=== PATIENT | female | born 1945 | race Caucasian/White ===

== ENCOUNTER → 2024-07-06 07:39 | Outpatient (REF) | payer MEDICARE, OTHER, SELFPAY ==
[2024-07-06 08:56] LABS: % Basophils 1.1 % (0-2); % Eosinophils 5.7 % (0-6); % Immature Granulocytes 0.2 % (0-0.5); % Lymphocytes 38.3 % (20.5-51.1); % Monocytes 7.5 % (1.7-9.3); % Neutrophils 47.2 % (42.2-75.2); Absolute Basophils 0.1 10^3/uL (0-0.2); Absolute Eosinophils 0.3 10^3/uL (0-0.7); Absolute Lymphocytes 1.7 10^3/uL (1.2-3.4); Absolute Monocytes 0.3 10^3/uL (0.1-0.6); Absolute Neutrophils 2.1 10^3/uL (1.4-6.5); Hematocrit 42.4 % (37.0-47.0); Hemoglobin 14.1 g/dL (12.0-16.0); Mean Corp Hgb Conc. 33.3 g/dL (33.0-37.0); Mean Corpuscular Hgb 29.7 pg (27.0-31.0); Mean Corpuscular Volume 89.3 fL (81.0-99.0); Mean Platelet Volume 11.4 fL (7.4-10.4); Nucleated Red Blood Cells % 0 %; Platelet Count 221 10^3/uL (130-400); Red Blood Cell Count 4.75 10^6/uL (4.20-5.40); Red Cell Dist. Width 15.1 % (11.5-14.5); White Blood Cell Count 4.5 10^3/uL (4.8-10.8)
[2024-07-06 09:07] LABS: Urine Albumin Negative (Neg - Trace); Urine Bilirubin Negative (Negative); Urine Character Slightly Cloudy (Clear); Urine Color Yellow; Urine Glucose Negative (Negative); Urine Ketone Negative (Negative); Urine Leukocyte 1+ (Negative); Urine Nitrite Negative (Negative); Urine Occult Blood Negative (Negative); Urine Specific Gravity 1.015 (<1.030); Urine Urobilinogen Negative (Neg - 1+)
[2024-07-06 09:15] LABS: Urine Bacteria Few (Negative); Urine Red Blood Cell 0-2 /HPF (0-2)
[2024-07-06 09:34] LABS: ALT (SGPT) 19 U/L (0-35); AST (SGOT) 22 U/L (14-36); Albumin 3.8 g/dl (3.5-5.0); Alkaline Phosphatase 57 U/L (38-126); Blood Urea Nitrogen 21 mg/dl (7-17); Calcium 9.4 mg/dl (8.4-10.2); Carbon Dioxide 29 mmol/L (22-30); Chloride 107 mmol/L (98-107); Glucose 83 mg/dl (70-99); HDL Cholesterol 69 mg/dl; LDL Cholesterol, Calculated 97 mg/dl; Potassium 4.3 mmol/L (3.5-5.1); Sodium 142 mmol/L (135-145); Total Bilirubin 0.8 mg/dl (0.2-1.3); Total Cholesterol 182 mg/dl (50-199); Triglyceride 84 mg/dl (10-149); Very Low Density Lipoprotein 16 mg/dl (0-30); eGFR > 60.00
[2024-07-06 10:29] LABS: Vitamin D, 25-OH*** 51.7 ng/mL (30-80)
[2024-07-06 10:42] LABS: TSH 3.38 uIU/ml (0.47-4.68)
== END ==
LOC: REG 07:39
PROVIDERS: ATTENDING PHYSICIAN Internal Medicine
DX: Z00.00 Encounter for general adult medical examination without abnormal findings (principal); E78.5 Hyperlipidemia, unspecified; R73.01 Impaired fasting glucose; E55.9 Vitamin D deficiency, unspecified
CPT/HCPCS: 36415; 80053; 80061; 81003; 81015; 82306; 83036; 84443; 85025

== ENCOUNTER 2024-10-04 07:45 | Emergency (ER) | payer MEDICARE, OTHER, SELFPAY ==
[2024-10-04 08:01] VITALS: BP 107/76
--- NOTE | 2024-10-04 08:51 | ED.MUSCINJ ---
HPI-Injury
General
Chief Complaint: Musculo-Skeletal Complaint
Source: patient
Exam Limitations: none
Time Seen by Provider: 10/04/24 08:18
History of Present Illness-Injury
Initial Injury comments:
78-year-old female with history of spinal stenosis in her cervical spine with ongoing left arm discomfort and left hand numbness presents with worsening symptoms that started overnight. The pain is exactly the same as what she deals with but more
severe. There is more numbness to the left hand. She denies chest pain or shortness of breath. She is healthy otherwise. No nausea or diaphoresis. She has been seen by Dr. Guardado in the past for her spine and was referred to Dr. Mendoza for pain
management. She most recently had epidural steroid injection into her neck in April of this year. Those seem to help. She does not usually take [id number] medications for this. She is trying to get into Dr. Guardado's partner Dr. Munoz for
repeat evaluation but has not been able to get an appointment.
Past History
Past History
ED Past Medical History: Asthma, Hypercholesterolemia, Hypothyroidism and Other (Spinal stenosis, left hip replacement, DJD)
Social History
Tobacco: Non-smoker
Alcohol: Occasional
Drug: None
Personal:
Living: with family
Phy Exam
Physical Exam
Physical Exam:
General: Well-appearing female no acute respiratory distress
HEENT: Normocephalic atraumatic
Heart: Regular rate and rhythm
Lungs: Clear no wheeze
Neurologic exam: Alert and oriented good strength to the upper and lower extremities. Cranial nerves intact. Reflexes intact to the upper extremity musculoskeletal exam: Decreased range of motion with lateral rotation to the left of the cervical
Injury Course
Orders/Labs/Results
Orders:
Orders
10/04/24 08:04
EKG [Electrocardiogram (*1)] Urgent
Reason for Study: Other
Other Reason for Exam: left arm pain
EKG- Treatment ONCE
MDM/Problems Addressed
Differential Diagnosis Includes:
Neck pain and left arm pain with the absence of chest pain. Symptoms very consistent with her prior radiculopathy symptoms in the past. EKG done through triage as a precaution shows normal sinus rhythm without ischemic changes. Patient's pain is
very reproducible. Do not suspect ACS. Pulses are good do not suspect dissection. Recommended anti-inflammatories for discomfort. Offered prednisone however she declined as she is going to be getting a cortisone shot in her knee this week. No
emergent need for MRI. Will follow-up with family doctor and policy specialist
*Pulse Oximetry
SaO2: 98
Oxygen Mode of Delivery: Room air
Patient hypoxic: no
*Critical Care Note
Total Time (30-74mins, 75-104mins- exclusive of procedures): Not Applicable
ED Attending Note
-
Portions of this chart may have been created with voice recognition software.� Occasional wrong word or��sound alike� substitutions may have occurred due to the inherent limitations of voice recognition software.
Discharge Plan
Departure
Patient Disposition: Home (Routine Discharge)
Date of Disposition: 10/04/24
Time of Disposition: 08:54
Patient with high blood pressure during this ER visit?: No
Discharge Problem:
Radiculopathy
Instructions: Radiculopathy of the neck and back (including sciatica)
Prescriptions:
No Action
atorvastatin 10 MG tablet
10 mg PO DAILY
levothyroxine 75 MCG tablet
75 mcg PO DAILY
albuterol sulfate [Ventolin HFA] 90 MCG/PUFF HFA aerosol inhaler
2 puff inhalation Q4HPRN PRN (Reason: SOB)
fluticasone furoate-vilanterol [Breo Ellipta] 1 EACH blister with device
1 ea inhalation DAILY
fexofenadine [Irina] 180 MG tablet
180 mg PO DAILY
potassium [Potassium-99] 99 MG tablet
99 mg PO DAILY
ascorbic acid (vitamin C) 250 MG tablet
250 mg PO DAILY
magnesium 250 MG tablet
250 mg PO DAILY
peg 400-propylene glycol (PF) [Systane (PF)] 1 EACH dropperette
1 drp BOTH EYES TIDPRN PRN (Reason: DRY EYE)
cholecalciferol (vitamin D3) 1,000 UNITS tablet
1,000 units PO DAILY
multivitamin with folic acid [Tab-A-Dilan] 1 TABLET tablet
1 tab PO DAILY
Referrals:
Jason Haque MD [Family Provider, Internal Medicine]
Activity Restrictions/Additional Instructions:
You may take ibuprofen 400 mg every 6-8 hours as needed for pain. You may use Tylenol in between doses for additional pain relief. Return if worse otherwise continue to follow-up with your physicians
Interventions
Interventions:
*Risk Screen - Suicide Last Done: 10/04/24 08:19
*General Assessment Last Done: 10/04/24 08:19
*Neglect/Abuse Screening Last Done: 10/04/24 08:19
*ED- Fall Risk Assessment Last Done: 10/04/24 08:19
*ED COVID-19 Vaccine History Last Done: 10/04/24 08:19
ED-Musculoskeletal Assessment Last Done: 10/04/24 08:19
Discharge Date and Time
Print Language: ESTONIAN
== END 2024-10-04 08:58 | disposition home or self-care (01) ==
LOC: EMR 07:45
PROVIDERS: EMERGENCY PHYSICIAN Student in an Organized Health Care Education/Training Program; FAMILY PHYSICIAN Internal Medicine
DX: M54.12 Radiculopathy, cervical region (principal); E03.9 Hypothyroidism, unspecified; E78.00 Pure hypercholesterolemia, unspecified; J45.909 Unspecified asthma, uncomplicated
CPT/HCPCS: 99283; 93005

== ENCOUNTER → 2024-10-06 06:54 | Outpatient (REF) | payer MEDICARE, OTHER, SELFPAY | LOC: PAVMRI 06:54 | PROVIDERS: ATTENDING PHYSICIAN Internal Medicine | DX: M54.12 Radiculopathy, cervical region (principal) | CPT/HCPCS: 72141 ==

== ENCOUNTER → 2024-12-06 08:10 | Outpatient (REF) | payer MEDICARE, OTHER, SELFPAY | LOC: HWWDC 08:10 | PROVIDERS: ATTENDING PHYSICIAN Internal Medicine | DX: Z12.31 Encounter for screening mammogram for malignant neoplasm of breast (principal) | CPT/HCPCS: 77063; 77067 ==

== ENCOUNTER → 2024-12-26 06:38 | Outpatient (REF) | payer MEDICARE, OTHER, SELFPAY | LOC: PAVMRI 06:38 | PROVIDERS: ATTENDING PHYSICIAN Orthopaedic Surgery Orthopaedic Surgery of the Spine; FAMILY PHYSICIAN Internal Medicine | DX: M48.062 Spinal stenosis, lumbar region with neurogenic claudication (principal) | CPT/HCPCS: 72148 ==